=== PATIENT | male | born 1965 | race Caucasian/White ===

== ENCOUNTER → 2019-07-14 | Outpatient (CLI) | payer OTHER ==
--- NOTE | 2019-07-14 12:00 | Diagnostic Imaging Report ---
PROCEDURE: MRI right joint upper extremity without contrast. TECHNIQUE: Multiplanar, multisequence non contrast-enhanced MRI of the right upper extremity was accomplished. INDICATION: Fell two and half weeks ago injury to the shoulder with shoulder pain. EXAMINATION: MRI of the right shoulder without contrast 07/14/2019 FINDINGS: The subscapularis tendon is intact. The long head of biceps tendon lies in the bicipital groove and is also intact. Hypointensities within the biceps tendon sheath likely loose bodies from the joint. The biceps tendon anchor is intact. There is degenerative signal throughout the labrum on this noncontrast examination. There is a small joint effusion. There is small amount of fluid throughout the subdeltoid and subacromial bursa with edema tracking along the lateral border of the proximal visualized humerus. Full-thickness tears of the supraspinatus and infraspinatus tendons are noted with retraction of at least 4.3 cm. A few residual far posterior intact bursal sided fibers of the infraspinatus tendon possible. There is atrophy throughout the supraspinatus and infraspinatus muscles with fatty infiltration noted. There is fluid extending proximal or cranial to the acromioclavicular joint which is narrowed with associated spurring. This is likely fluid emanating from the joint space given the full-thickness rotator cuff tear consistent with a geyser sign. Visualized axilla is unremarkable. IMPRESSION: 1. Full thickness tears of the supraspinatus and infraspinatus tendons with retraction as above. 2. Subscapularis tendon and biceps tendon intact. 3. Edema surrounding the shoulder and extending through the acromioclavicular joint likely all post traumatic with other findings as above. Dictated by: Dictated on workstation # [id number]
== END ==
LOC: RAD 09:47
DX: S49.91XA Unspecified injury of right shoulder and upper arm, initial encounter (principal); W19.XXXA Unspecified fall, initial encounter
CPT/HCPCS: 73221